=== PATIENT | female | born 1960 | race Caucasian/White ===

== ENCOUNTER 2024-03-15 10:41 | Outpatient (CLI) | payer OTHER, SELFPAY ==
--- NOTE | ~2024-03-15 | MR_ITS ---
EXAMINATION: MR breast BI wo/w con INDICATION: Left nipple discharge TECHNIQUE: Axial VIBRANT pre and dynamic post contrast, Sagittal VIBRANT post contrast, Axial T2 STIR ASSET COMPARISON: Mammography dated 10/13/2023 and 12/28/2019 CONTRAST: Multihance, 14 cc BREAST COMPOSITION: Scattered fibroglandular tissue FINDINGS: RIGHT BREAST: There is mild background parenchymal enhancement. No abnormal enhancement is present af ter contrast administration. No pathologically enlarged axillary or internal mammary lymph nodes are identified. LEFT BREAST: There is mild background parenchymal enhancement. There is a stable 1.2 x 0.8 cm mass in the central left breast, which correlates with mass present on prior mammograms from 2022 and 2019. No pathologically enlarged axillary or internal mammary lymph nodes are identified. IMPRESSION: No MR evidence for malignancy. Stable 1.2 x 0.8 cm central left breast mass dating back to at least 2019. This is consistent with be nign lesion, likely fibroadenoma BI-RADS Category 2: Benign finding(s). Reviewed, dictated and finalized at [facility]. IMPRESSION: No MR evidence for malignancy. Stable 1.2 x 0.8 cm central left breast mass dating back to at least 2019. This is consistent with benign lesion, likely fibroadenoma BI-RADS Category 2: Benign finding(s).
== END 2024-03-15 10:42 | disposition home or self-care (01) ==
PROVIDERS: PCP Internal Medicine Gastroenterology; Visit Provider Surgery
DX: N64.52 Nipple discharge (principal)
CPT/HCPCS: 77049; A9577; C8908

== ENCOUNTER 2024-08-08 09:43 | Outpatient (CLI) | payer OTHER, SELFPAY ==
--- NOTE | ~2024-08-08 | US_ITS ---
US breast BI limited 08/08/2024 10:39 Indication: Nipple discharge Procedure: Limited bilateral breast ultrasound Comparison: Ultrasound dated 12/28/2019 Findings: There is normal heterogeneous echotexture in the right breast without discrete mass. In the left breast there is a 7 x 3 x 5 mm oval hypoechoic mass with echogenic hilum at 12:00 near the areo la. No internal vascularity or posterior features. Impression: 1: Probable benign intramammary lymph node in the left breast at 12:00 near the areola. No sonographi c evidence for malignancy in the right breast. BI-RADS CATEGORY 3-PROBABLY BENIGN FINDING RECOMMENDATION: Six-month follow-up bilateral mammogram and Limited left breast ultrasound recommende d. Reviewed, dictated and finalized at [facility]. Impression: 1: Probable benign intramammary lymph node in the left breast at 12:00 near the areola. No sonographic evidence for malignancy in the right breast. BI-RADS CATEGORY 3-PROBABLY BENIGN FINDING RECOMMENDATION: Six-month follow-up bilateral mammogram and Limited left breast ultrasound recommended.
== END 2024-08-08 09:44 | disposition home or self-care (01) ==
PROVIDERS: PCP Internal Medicine Gastroenterology; Visit Provider Surgery
DX: N64.52 Nipple discharge (principal); R92.8 Other abnormal and inconclusive findings on diagnostic imaging of breast
CPT/HCPCS: 76642

== ENCOUNTER 2025-01-31 12:39 | Outpatient (CLI) | payer OTHER, SELFPAY ==
--- NOTE | ~2025-01-31 | MMUS_ITS ---
EXAMINATION: MM diagnostic naa BI w viry, US breast LT limited HISTORY: Previous benign right breast biopsy. Follow-up left breast mass. TECHNIQUE: Additional 3-D tomosynthesis images of the breasts were performed and synthetic 2-D images were generated. CAD analysis was submitted and interpreted. High resolution Limited left breast ultr asound was performed. COMPARISON: Comparison to multiple prior studies sequentially, with oldest reviewed study dated 11/24. BREAST PARENCHYMAL COMPOSITION: Not dense: There are scattered areas of fibroglandular density. FINDINGS: MAMMOGRAPHIC FINDINGS: There are no suspicious masses, calcifications or architectural distortion in either breast to sugges t malignancy. There is architectural distortion centrally in the right breast, consistent with previo us site of prior benign biopsy. No new masses, calcifications or architectural distortion in either b reast to suggest malignancy. ULTRASOUND: Limited left breast ultrasound: At 12:00 in the retroareolar location there is an oval hypoechoic mas s with central echogenicity measuring 6 x 5 x 2 mm without significant change, consistent with benign intramammary lymph node. No suspicious masses to suggest malignancy. IMPRESSION: 1. No evidence for malignancy in either breast. 2. Routine yearly screening mammogram and regular clinical breast examination are recommended. BI-RADS Category 2: Benign finding(s). Reviewed, dictated and finalized at location A. IMPRESSION: 1. No evidence for malignancy in either breast. 2. Routine yearly screening mammogram and regular clinical breast examination a re recommended. BI-RADS Category 2: Benign finding(s).
--- OUTSIDE RECORDS SUMMARY | 2025-01-31 13:49 | XMS_ITS | Encounter Summary ---
Author Organization [facility] Address [address] [place] [address] Care Team Providers Care Yoke Setter Name Role Phone Unavailable Primary Care Provider Unavailabl e Reason for Visit * Reason Onset Date Comments Hydroureteronephrosis 02/07/2024 Spoke w/ T carley @ Dr. Ji Urena exchange Encounter Details Date Type Department Care Team (Latest Contact Info) Description 02/07/2024 Telephone [facility] Admitting [address] [place] [address] Boubacar Zuniga, DO [address] [place] [address] Hydroureteronephrosis (Spoke w/ Iveth @ Dr. Ji Urena exchange) Social History Tobacco Use Types Packs/Day Years Used Date Smoking Tobacco: Every Day Cigarettes 1 5 Started: 01/24/2020 Smokeless Tobacco: Never Alcohol Use Standard Drinks/Week Comments Yes 3 (1 standard drink = 0.6 oz pur e alcohol) Social drinker Feeling Safe Answer Date Recorded Are you in a relationship wi th someone who hurts you emotionally and/or physically? No 02/07/2024 Food Insecurity Answer Date Recorded Social/Environmental Concerns No concerns Transportation Needs Answer Date Record ed Social/Environmental Concerns No concerns Housing Stability Answer Date Recorded Social/Environmental Concerns No concerns Utility Needs Answer Date Recorded Social/Environmental Concerns No concerns Comments No Sex and Gender Information Value Date Recorded Sex Assigned at Not on file Legal Sex Female 11:28 PM CDT Gender Identity Not on file Sexual Orientation Not on file documented as of this encounter Plan of Treatment Not on file documented as of this encounter Visit Diagnoses Not on filedocumented in this encounter
--- OUTSIDE RECORDS SUMMARY | 2025-01-31 13:49 | XMS_ITS | Encounter Summary ---
Author Organization [facility] Address [address] [place] [address] Care Team Providers Care Community Support Professional Name Role Phone Unavailable Primary Care Provider Unavailabl e Encounter Details Date Type Department Care Team (Late st Contact Info) Description 01/30/2025 External Device Data [facility] ABSTRACTION Provider, Abstract NO ADDRESS ON FILE Social History Tobacco Use Types Packs/Day Years Used Date Smoking Tobacco: Every Day Cigarettes 1 5 Started: 01/24/2020 Smokeless Tobacco: Never Alcohol Use Standard Drinks/Week Comments Yes 3 (1 standard drink = 0.6 oz pur e alcohol) Social drinker Feeling Safe Answer Date Recorded Are you in a relationship wi th someone who hurts you emotionally and/or physically? No 02/15/2024 Food Insecurity Answer Date Recorded Social/Environmental Concerns [...]
--- OUTSIDE RECORDS SUMMARY | 2025-01-31 13:49 | XMS_ITS | Encounter Summary ---
Author Organization [facility] Address [address] [place] [address] Care Team Providers Care Replenishment Buyer Name Role Phone Unavailable Primary Care Provider [...]
--- OUTSIDE RECORDS SUMMARY | 2025-01-31 13:49 | XMS_ITS | Encounter Summary ---
Author Organization [facility] Address [address] [place] [address] Care Team Providers Care Fish Machine Feeder Name Role Phone Jose Duron MD Primary Care Provider [phone] Reason for Visit * Reason Comments Refill Request Encounter Details Date Type Department Care Team (Late st Contact Info) Description 01/30/2025 Refill [facility] - Neurology [address] [place] [address], [place] [phone] Carri Rodriguez MD [address] [place] [phone] Refill Request Social History Tobacco Use Types Packs/Day Years Used Date Smoking Tobacco: Every Day Cigarettes 1.5 55.3 Started: 1970 Smokeless Tobacco: Never Alcohol Use Standard Drinks/Week Comments Yes 0 (1 standard drink = 0.6 oz pur e alcohol) occassional beer AUDIT-C Answer Date Recorded Frequency of Alcohol Consumption Not on file 02/01/2024 Q2: How many drinks containi ng alcohol do you have on a typical day when you are drinking? Patient does not drink Frequency of Binge Drinking Not on file 06/2024 Overall Financial Resource Strain (CARDIA) Answe r Date Recorded How hard is it for you to pa y for the very basics like food, housing, medical care, and heating? Very hard 07/29/2023 [facility] [place] of Occupat ional Health - Occupational Stress Questionnaire Answer Date Recorded Do you feel stress - tense, restless, nervous, or anxious, or unable to sleep at night because your mind is troubled all the time - these days? Not at all 07/29/2023 Hunger Vital Sign Answer Date Recorded Within the past 12 months, y ou worried that your food would run out before you got the money to buy more. Sometimes true Within the past 12 months, t he food you bought just didn't last and you didn't have money to get more. Never true 02/2023 PRAPARE - Transportation Answer Date Re corded In the past 12 months, has l ack of transportation kept you from medical appointments or from getting medications? No 02/2023 In the past 12 months, has l ack of transportation kept you from meetings, work, or from getting things needed for daily living? No 07/29/2023 Housing Stability Vital Sign Answer Elder e Recorded In the last 12 months, was t here a time when you were not able to pay the mortgage or rent on time? No 07/29/2023 In the last 12 months, how many places have you lived? 1 07/29/2023 In the last 12 months, was t here a time when you did not have a steady place to sleep or slept in a halfway (including now)? No 07/29/2023 Sex and Gender Information Value Date Recorded Sex Assigned at Not on file Gender Identity Not on file Sexual Orientation Not on file documented as of this encounter Functional Status Functional Status Response Date of Assess ment Is person deaf or have serious hearing difficult y? No 07/29/2023 Is person blind or have serious difficulty seein g? No 07/29/2023 Does person have serious dif ficulty walking/climbing stairs? Yes 07/29/2023 Does person have difficulty dressing/bathing? No 07/29/2023 Does person have difficulty doing errands alone? Yes 07/29/2023 Cognitive Status Response Date of Assessm ent Does person have difficulty concentrating/remembering/making decisions? No 07/29/2023 documented as of this encounter Plan of Treatment Upcoming Encounters Date Type Department Care Team (Late st Contact Info) Description 02/08/2025 2:30 PM CDT Office Visit [facility] - Urology [address] [place] [address] [address] [place] [address] Inga Valero M, DO [address] [place] [address] documented as of this encounter Visit Diagnoses Diagnosis MS (multiple sclerosis) (HCC) Multiple sclerosis documented in this encounter Care Teams Fish Machine Feeder Relationship Specialty Start Date End Date Jose Duron MD [address] [place] [phone] PCP - General 03/04/18 documented as of this encounter
--- OUTSIDE RECORDS SUMMARY | 2025-01-31 13:49 | XMS_ITS | Encounter Summary ---
Author Organization [facility] Address [address] [place] [address] Care Team Providers Care Fuel Yard Operator Name Role Phone Unavailable Primary Care Provider [...]
--- OUTSIDE RECORDS SUMMARY | 2025-01-31 13:49 | XMS_ITS | Clinical Summary ---
Author Organization [facility] Address [address] [place] [address] Care Team Providers Care Prospect Manager Name Role Phone Jose Duron MD Primary Care Provider [phone] Source Comments [facility],non-owned Affiliates and Associated Physician Practices is amultiple site organization consisting of ambulatory clinics and hospital sitesin [place], [place], [place] and [place]. This disclosure is being madepursuant to the Care Everywhere program and may not contain all information available regarding this patient. Last updated 18.[facility] Allergies Active Allergy Reactions Criticality Noted Date Comments Citalopram Diarrhea 05/20/2018 Nicotine Rash Medium 04/26/2024 Bupropion Seizures High 05/20/2018 Medications * Be aware that medications may not be up to date on this document. Alwaysverify current medications with the patient. Medication Sig Dispensed Refills Start Date End Date Status ibuprofen (Motrin) 800 MG tablet 3 Active losartan (Cozaar) 25 MG tablet Take 1 (one) tablet by mouth once daily for blood pressure 3 Active pantoprazole (Protonix) 40 MG packet Take 1 (one) packet by mouth once daily Active tamsulosin (Flomax) 0.4 MG capsule Take 1 (one) capsule by mouth once daily At the same time every day after a meal. 90 capsule 4 4 Active solifenacin (Vesicare) 10 MG tablet TAKE ONE TABLET BY MOUTH DAILY 90 tablet 3 4 Active doxazosin (Cardura) 2 MG tablet TAKE ONE TABLET BY MOUTH DAILY 90 tablet 3 4 Active tiZANidine (Zanaflex) 4 MG tabletIndicatio ns:MS (multiple sclerosis) ([facility]),Spasticit y TAKE ONE TABLET BY MOUTH EVERY 8 HOURS NEEDED FOR MUSCLE SPASM 90 tablet 5 5 Active Rebif 22 MCG/0.5ML prefilled syringeIndicati ons:MS (multiple sclerosis) ([facility]) INJECT 1 SYRINGE SUBCUTANEOUSLY ON WEDNESDAY, WEDNESDAY AND WEDNESDAY 12 mL 5 Active Rebif 22 MCG/0.5ML prefilled syringeIndicati ons:MS (multiple sclerosis) ([facility]) INJECT 1 SYRINGE SUBCUTANEOUSLY ON Wednesday AND WEDNESDAY 12 mL 5 01/06/20 25 Discontinued Active Problems Problem Noted Date Diagnosed Date Fall, initial encounter 07/29/2023 Closed fracture of neck of right femur, sequela 07/29/2023 Pain of right hip 07/29/2023 HTN (hypertension) 07/29/2023 Multiple sclerosis 02/25/2023 Renal abscess, left 01/15/2023 Urinary tract infection with hematuria, site uns pecified 01/10/2023 Cervicalgia 08/31/2018 Chronic midline low back pain without sciatica 1 10/31/2017 History of retinal detachment 07/27/2018 Tobacco abuse 01/29/2016 Encounters Date Type Department Care Team Description 01/30/2025 Refill [facility] - Neurology [address] [place] [phone] Carri Rodriguez MD Refill Request 01/04/2025 Refill [facility] - Neurology [address] [place] [phone] Carri Rodriguez MD Refill Request 12/01/2024 Refill [facility] - Neurology [address] [place] [phone] Carri Rodriguez MD Refill Request 11/07/2024 Refill [facility] - Neurology [address] [place] [phone] Carri Rodriguez MD Refill Request from Last 3 Months Immunizations Name Administration Dates Next Due INFLUENZA VACCINE, QUADR. (F LUZONE; FLULAVAL; FLUARIX; AFLURIA QUADRIVALENT; 6MO+), 0.5 ML (IIV4) 07/30/2023 Family History Medical History Relation Name Comments CAD (Coronary Artery Disease) Father Cancer - Other Mother bone Relation Name Status Comments Father Mother Social History Tobacco Use Types Packs/Day Years Used Date Smoking Tobacco: Every Day Cigarettes 1.5 55.3 Started: 1969 Smokeless Tobacco: Never Tobacco Cessation:Ready to Q uit: Not Asked; Counseling Given: Not Answered Alcohol Use Standard Drinks/Week Comments Yes 0 [...] medical care, and heating? Very hard 07/29/2023 [facility] [place] of Occupat ional Health - Occupational Stress [...] place to sleep or slept in a fci (including now)? No 07/29/2023 Sex and Gender Information Value Date Recorded Sex Assigned at Not on file Gender Identity Not on file Sexual Orientation Not on file Last Filed Vital Signs Vital Sign Reading Time Taken Comments Blood Pressure 152/85 10/04/2024 2:15 PM SEISMOGRAPH COMPUTER Pulse 75 10/04/2024 2:15 PM SEISMOGRAPH COMPUTER Temperature 36.5 C (97.7 F) 10/04/2024 2:15 PM SEISMOGRAPH COMPUTER Respiratory Rate 18 10/04/2024 2:15 PM SEISMOGRAPH COMPUTER Oxygen Saturation 98% 10/04/2024 2:15 PM SEISMOGRAPH COMPUTER Inhaled Oxygen Concentration - - Weight 76.2 kg (168 lb) 10/04/2024 2:15 PM SEISMOGRAPH COMPUTER Height 182.9 cm (6') 10/04/2024 2:15 PM SEISMOGRAPH COMPUTER Body Mass Index 22.78 10/04/2024 2:15 PM SEISMOGRAPH COMPUTER Plan of Treatment Upcoming Encounters Date Type Department Care Team (Late st Contact Info) Description 02/08/2025 2:30 PM CDT Office Visit [facility] - Urology [address] [place] [address] [address] [place] [address] Inga Valero M, DO [address] [place] [phone] Health Maintenance Due Date Last Done Comments COLOGUARD (AGES 45-75) - COL ON CA SCREENING 1962 COLON MONITORING 1962 COLONOSCOPY - COLON CA SCREENING 1962 CT COLONOGRAPHY - COLON CA SCREENING 1962 Colorectal Cancer Screening 1962 FIT - COLON CA SCREENING 1962 FLEX SIG - COLON CA SCREENING 1962 LIPID TESTING 1962 MAMMOGRAM 1962 PAP SMEAR 1962 HIV SCREENING 1977 HEPATITIS C SCREENING 04/17/1980 DTAP/TDAP/TD VACCINES (1 - Tdap) 1981 PNEUMOCOCCAL VACCINE 50+ (1 of 2 - PCV) 1981 LUNG CANCER SCREENING 2012 ZOSTER VACCINE (1 of 2) 2012 Respiratory Syncytial Virus (RSV) Vaccine Pt: or over 60 yrs (1 - Risk 60-74 years 1-dose series) 2022 COVID-19 VACCINE (1 - 2023-2 5 season) 2024 DEPRESSION SCREENING 10/25/2024 INFLUENZA VACCINE Completed 10/03/2024, 07/30/2023, 12/13/2018 HEPATITIS B VACCINE Aged Out No longe r eligible based on patient's age to complete this topic HIB VACCINE Aged Out No longer eligi ble based on patient's age to complete this topic HPV VACCINE Aged Out No longer eligi ble based on patient's age to complete this topic MENINGOCOCCAL (Group B) VACCINE SHARED DECISION-MAKING Aged Out No longer eligible based on patient's age to complete this topic MENINGOCOCCAL GROUPS A/C/Y/W VACCINE Aged Out No longer eligible b ased on patient's age to complete this topic Medical Devices Implanted Type Area Sales And Events Coordinator Device Identifier Shelf Expiration Date Model / Serial / Lot Hip Stem - Standard Offset Implanted:Qty: 1 on 07/29/2023 by Matt Leslie MD at [facility] 02/01/2028 [id number] / / [id number] Neck Adjustment Sleeve Implanted:Qty: 1 on 07/29/2023 by Matt Leslie MD at [facility] 01/15/2028 [id number] / [id number] Endoprosthesis Head Component Implanted:Qty: 1 on 07/29/2023 by Matt Leslie MD at [facility] 12/18/2027 [id number] Advance Directives * Full Code (Latest Code Status on File) Date Activated Date Inactivated Comments 07/29/2023 2:56 AM 08/03/2023 7:08 PM * Full Code Date Activated Date Inactivated Comments 01/10/2023 8:09 PM 01/15/2023 8:01 PM Care Teams Prospect Manager Relationship Specialty Start Date End Date Jose Duron MD [address] [place] [phone] PCP - General 03/04/18
--- OUTSIDE RECORDS SUMMARY | 2025-01-31 13:49 | XMS_ITS | Clinical Summary ---
Author Organization [facility] Address [address] [facility] [place] [address] Phone Care Team Providers Care Agricultural Extension Specialist Name Role Phone Jose Duron MD Primary Care Provider Allergies Active Allergy Reactions Criticality Noted Date Comments Citalopram Hydrobromide Diarrhea 07/12/2018 Bupropion Hcl Other (see Comments) 07/12/2018 Causes seizures Medications doxazosin (CARDURA) 2 MG Tablet Take 2 mg by mouth daily. Active cetirizine (ZYRTEC) 10 MG Tablet 8 Active nitrofurantoin (MACRODANTIN) 100 MG Capsule 8 Active ALBUTEROL IN take by inhalation. Active ergocalciferol (VITAMIN D) 30187 UNIT Capsule TAKE ONE CAPSULE BY MOUTH EVERY OTHER WEEK 4 Cap 9 Active Additional Information Patient not taking.Reported on 04/20/2019 Loratadine 10 MG Capsule Take 10 mg by mouth daily. Active tolterodine (DETROL LA) 4 MG CAPSULE SR 24 HR Take 4 mg by mouth daily. Active Cholecalciferol (VITAMIN D-3) 400 UNIT Tablet Take by mouth. Active methylPREDNISol one (MEDROL DOSPACK) 4 MG Tablet Therapy Pack Use as per instructions on package. 1 Dose Pack 9 Active traMADol (ULTRAM) 50 MG Tablet Take 1 Tab by mouth every 8 hours as needed for Moderate or more severe pain. 42 Tab 0 Active meloxicam (MOBIC) 15 MG Tablet TAKE 1 TABLET BY MOUTH ONCE EVERY DAY 30 Tab 0 Active baclofen (LIORESAL) 10 MG Tablet TAKE 1 TABLET BY MOUTH TWO TIMES DAILY (MUSCLE RELAXER) 60 Tab 2 0 Active Rebif 22 MCG/0.5ML Solution Prefilled SyringeIndicati ons:Multiple sclerosis (HCC) 22 mcg by Subcutaneous route three times a week. 12 Syringe 5 0 Active Active Problems Problem Noted Date Diagnosed Date Chronic midline low back pain without sciatica 1 10/31/2017 Cervicalgia 08/31/2018 Social History Tobacco Use Types Packs/Day Years Used Date Smoking Tobacco: Every Day Cigarettes 11 23 Smokeless Tobacco: Never Tobacco Cessation:Ready to Q uit: Yes Alcohol Use Standard Drinks/Week Comments Yes 0 (1 standard drink = 0.6 oz pur e alcohol) occasional Comments No Sex and Gender Information Value Date Recorded Sex Assigned at Not on file Legal Sex Female 2:40 PM CDT Gender Identity Not on file Sexual Orientation Not on file Last Filed Vital Signs Vital Sign Reading Time Taken Comments Blood Pressure 147/89 06/13/2019 11:41 AM CDT Pulse 86 06/13/2019 11:41 AM CDT Temperature 36.2 C (97.2 F) 06/13/2019 11:41 AM CDT Respiratory Rate 16 05/17/2019 11:19 AM CDT Oxygen Saturation 99% 06/13/2019 11:41 AM CDT Inhaled Oxygen Concentration - - Weight 85 kg (187 lb 6.4 oz) 04/20/2019 1:07 PM CDT Height 182.9 cm (6') 04/20/2019 1:07 PM CDT Body Mass Index 25.42 04/20/2019 1:07 PM CDT Plan of Treatment Health Maintenance Due Date Last Done Comments Hepatitis C Virus (HCV) Screening 1962 TdaP Immunization 1962 SARS-COV-2 Immunization (#1) 1967 Zoster Immunization (1 of 2) 1981 Colonoscopy 2007 Colorectal Cancer Screening 2007 Cologuard 2012 Immunochemical Fecal Occult Blood 2012 Pneumococcal Immunization (5 0+ years) (1 of 1 - PCV) 2012 Respiratory Syncytial Virus (RSV) Immunization (Adult) (1 - Risk 60-74 years 1-dose series) 2022 Influenza Immunization (#1) 2024 12/13/2018 Hepatitis B Immunization Aged Out No longer eligible based on patient's age to complete this topic Meningococcal Immunization (ACWY) Aged Out No longer eligible based on patient's age to complete this topic Rotavirus Immunization Aged Out No lo nger eligible based on patient's age to complete this topic Insurance [address] [place] [address] MEDICAID [employer] Care Teams Agricultural Extension Specialist Relationship Specialty Start Date End Date Jose Duron MD [address] [place] [address] PCP - General Internal Medicine 03/09/18
--- OUTSIDE RECORDS SUMMARY | 2025-01-31 13:49 | XMS_ITS | Clinical Summary ---
Author Organization [facility] Address [address] [place] [address] Phone Care Team Providers Care Potter Or Ceramic Artist Name Role Phone Unavailable Primary Care Provider Unavailabl e Allergies Active Allergy Reactions Criticality Noted Date Comments Bupropion Seizure High 02/07/2024 Citalopram Diarrhea Low 02/07/2024 Medications acetaminophen (TYLENOL ARTHRITIS) 650 mg Extended Release tablet Take 650 mg by mouth every 6 hours as needed for Pain. Active solifenacin (VESICARE) 10 mg Tablet Take 10 mg by mouth daily. Active losartan (COZAAR) 50 mg tablet Take 50 mg by mouth daily. Active loratadine (CLARITIN RediTabs) 10 mg Tablet, Rapid Dissolve Place 10 mg inside cheek daily. Active tiZANidine (ZANAFLEX) 4 mg Capsule Take 4 mg by mouth every 6 hours as needed for Spasm. Active pantoprazole (Protonix) 40 mg Tablet, Delayed Release (E.C.) Take 1 Tablet (40 mg) by mouth daily. 30 Tablet 02/13/2024 2:31 PM CDT 02/13/2024 Active polyethylene glycol 3350 (MIRALAX) 17 gram/dose Powder Mix 1 Scoop (17 Grams) in liquid and drink by mouth 1 time daily as needed for Constipation. 510 Gram 02/13/2024 2:31 PM CDT 02/13/2024 Active nicotine (NICODERM CQ) 14 mg/24 hr patch Apply 1 Patch to skin as directed daily. 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 Urinary retention 02/07/2024 Bilateral hydronephrosis 02/07/2024 Acute cystitis with hematuria 02/07/2024 OLY (acute kidney injury) 02/07/2024 Bladder diverticulum 02/07/2024 Constipation 02/07/2024 Encounters Date Type Department Care Team Description 01/30/2025 External Device Data [facility] ABSTRACTION Provider, Abstract 01/30/2025 External Device Data [facility] ABSTRACTION Provider, Abstract 01/30/2025 External Device Data [facility] ABSTRACTION Provider, Abstract 12/26/2024 External Device Data [facility] ABSTRACTION Provider, Abstract 12/12/2024 External Device Data [facility] ABSTRACTION Provider, Abstract 11/28/2024 External Device Data [facility] ABSTRACTION Provider, Abstract 11/22/2024 External Device Data [facility] ABSTRACTION Provider, Abstract 11/16/2024 External Device Data [facility] ABSTRACTION Provider, Abstract 11/07/2024 External Device Data [facility] ABSTRACTION Provider, Abstract from Last 3 Months Family History Medical History Relation Name Comments Heart Disease Father Cancer Mother Relation Name Status Comments Father Mother Social History Tobacco Use Types Packs/Day Years Used Date Smoking Tobacco: Every Day Cigarettes 1 5 Started: 01/24/2020 Smokeless Tobacco: Never Tobacco Cessation:Ready to Q uit: No; Counseling Given: No Alcohol Use Standard Drinks/Week Comments Yes 3 [...] Sign Reading Time Taken Comments Blood Pressure 95/57 02/15/2024 3:21 AM CDT Pulse 98 02/15/2024 3:21 AM CDT Temperature 36.7 C (98 F) 02/13/2024 4:42 PM CDT Respiratory Rate 20 02/15/2024 3:21 AM CDT Oxygen Saturation 97% 02/15/2024 3:21 AM CDT Inhaled Oxygen Concentration - - Weight 63.5 kg (140 lb) 02/07/2024 11:08 AM CDT Height 182.9 cm (6') 02/07/2024 11:08 AM CDT Body Mass Index 18.99 02/07/2024 11:08 AM CDT Plan of Treatment Health Maintenance Due Date Last Done Comments PNEUMOCOCCAL VACCINE 0-49 YEARS (1 of 2 - PCV) 968 DTAP/TDAP/TD VACCINES (1 - Tdap) 1981 HPV/Cotest (21-29) 1983 PAP SMEAR 1983 CERVICAL CANCER SCREENING 1992 HPV/Cotest (30-65) 1992 PAP SMEAR 1992 BREAST CANCER SCREENING 2002 COLORECTAL SCREENING 2007 Colorectal Cancer Screening 2007 FIT-DNA Q 3 years 2007 FIT/FOBT Q 1 year 2007 Flex Sig/CT Colonography Q 5 years 2007 ZOSTER VACCINE (1 of 2) 2012 INFLUENZA VACCINE (#1) 2024 07/30/2023 RSV VACCINE (60+ or ) (1 - 1-dose 75+ series) 2037 Insurance [address] [place] [address] [facility] MEDICAID RX [employer] Commercial Advance Directives For more information, please contact: [phone] * Full Code (Latest Code Status on File) Date Activated Date Inactivated Comments 02/07/2024 8:36 AM 02/13/2024 9:01 PM
--- OUTSIDE RECORDS SUMMARY | 2025-01-31 13:50 | XMS_ITS | Continuity of Care Document ---
Author Organization [facility] Address [facility] [place] [address] Phone Care Team Providers Care Online Tutor Name Role Phone Unavailable Unavailable Unavailable Advance Directives Directive Yes / No Effective Date File Name No Information Encounters Encounter Description Practice Location Reason(s) For Visit Diagnoses Date Provider Providers Copied on Encounter [facility], [address] [place] [address], [id number], [place] tel:[phone] [facility] No Information 0200 7 No Information Family History Family Member Type Diagnosis Age At Onset No Information Payers Payer name Insurance type Covered republican ID Authoriza tion(s) No Information Social History Type Description Quantity Date Captured Comments Sex Female Smoking Status No Information Chief Complaint And Reason For Visit No Information Reason For Referral Reason For Referral No Information History Of Present Illness Encounter Date Complaint History Of Prese nt Illness No Information Functional Status Date Functional Assessmen t No Information Instructions Date Instruction Additional Infor mation No Information Assessments Type Assessment Date No Information Patient Care Teams Name Effective Dates (start - stop) Status Members No Information
--- OUTSIDE RECORDS SUMMARY | 2025-01-31 13:50 | XMS_ITS | Data Portability ---
Author Organization [facility] Brink Address [address] [address] Care Team Providers [facility] Display Builder Name Role Phone JOSE RASCON Primary Care Provider Assessment No assessment recorded. Plan of Treatment Reminders Order Date Submit Date Provider Last Modified By Organization Details Last Modified Time Details Appointments ANY 15 2024 01:15P M Jose Rascon MD Not available Not available Not available Lab vitamin D, 25-hydr oxy, total, serum 2023 [facility], [address], [address], [place], [address], 08/12/2024 08:25:55 vitamin B12 + folate, serum or blood 2023 [facility], [address], [address], [place], [address], 08/12/2024 08:25:54 thiamin e, QN, blood 2023 024 [facility], [address], [address], [place], [address], 08/16/2024 13:11:12 CMP, serum or plasma 2023 [facility], [address], [address], [place], [address], 08/12/2024 06:20:30 lipid panel, serum 2023 024 [facility], [address], [address], [place], [address], 08/12/2024 06:20:28 CBC 2023 024 [facility], [facility] [address], [address], [place], [address], 08/12/2024 06:20:31 TSH, ultra-s ensitiv e, serum 2023 024 [facility], [facility] [address], [address], [place], [address], 08/12/2024 08:25:52 HbA1c (hemogl obin A1c), blood 2022 023 [facility], [address], [address], [place], [address], 10/13/2023 06:20:37 CBC 2022 023 [facility], [facility] [address], [address], [place], [address], 10/13/2023 06:20:35 lipid panel, serum 2022 023 [facility], [address], [address], [place], [address], 10/13/2023 06:20:34 CMP, serum or plasma 2022 023 [facility], [address] [facility] [address], [address], [place], [address], 10/13/2023 06:20:34 culture , urine 2022 023 [facility] [address], [address], [place], [address], 06/17/2023 07:14:24 Referral None recorde d. Procedures None recorde d. Surgeries None recorde d. Imaging None recorde d. Medication Orders losarta n 50 mg tablet 2022 023 [place] [facility], [address] [place] [address], [id number], 03/22/2024 15:42:45 acetami nophen 300 mg-code ine 30 mg tablet 2022 023 [facility], [facility], [address] [facility] [address], [place], [id number], 08/01/2024 16:28:58 acetami nophen 300 mg-code ine 30 mg tablet 2022 023 [facility], [address] [place] [address], [id number], 08/01/2024 16:28:58 Cipro 500 mg tablet 2022 023 [facility], [facility], [address] [place] [address], [id number], 08/01/2024 16:31:19 Patient TargetsNo targets recorded. Patient Instructions Encounter Date Encounter Id Patient Instructions Last Modified By Organization Details Last Modified Time 08/12/2023 [id number] learning about h igh blood sugar Not available 08/12/2023 15:32:58 Quitting Tobacco : Care Instructions [email or web address] Not available 08/12/2023 15:32:58 hip replacement: before your surgery [email or web address] Not available 08/12/2023 15:32:58 urinary retentio n: care instructions Not available 08/12/2023 15:32:58 back care and preventing injuries: care instructions [email or web address] Not available 08/12/2023 15:32:58 learning about h igh blood pressure [email or web address] Not available 08/12/2023 15:32:58 multiple scleros is (MS): care instructions [email or web address] Not available 08/12/2023 15:32:58 10/12/2023 [id number] learning about h igh blood sugar [email or web address] Not available 10/12/2023 16:08:02 hip replacement: before your surgery [email or web address] Not available 10/12/2023 16:08:01 learning about h igh blood pressure [email or web address] Not available 10/12/2023 16:08:02 multiple scleros is (MS): care instructions [email or web address] Not available 10/12/2023 16:08:01 08/01/2024 [id number] Quitting Tobacco : Care Instructions Not available 08/01/2024 16:49:39 gastroesophageal reflux disease (GERD): care instructions [email or web address] Not available 08/01/2024 16:49:39 multiple scleros is (MS): care instructions [email or web address] Not available 08/01/2024 16:49:39 hair loss from alopecia areata: care instructions [email or web address] Not available 08/01/2024 16:49:39 abnormal weight loss: care instructions [email or web address] Not available 08/01/2024 16:49:39 learning about h igh blood sugar [email or web address] Not available 08/01/2024 16:49:39 learning about h igh blood pressure [email or web address] Not available 08/01/2024 16:49:39 10/03/2024 [id number] Quitting Tobacco : Care Instructions [email or web address] Not available 10/03/2024 16:27:19 urinary retentio n: care instructions Not available 10/03/2024 16:27:19 multiple scleros is (MS): care instructions Not available 10/03/2024 16:27:20 Reason for Referral None Reported. Results Created Date Observation Date Name Description Value Unit Range Abnormal Flag Note LastModifiedBy Organization Detail LastModifiedTime 06/15/20 23 06/17/2023 URINE CULTU RE, ROUTI NE urine culture, routine Final report Not Available [facility] ([facility]) [address], [place], [address], 06/17/2023 07:14:24 08/22/20 23 06/17/2023 URINE CULTU RE, ROUTI NE result 1 Commen t Mixed uroge nital isac 25,00 0-50, 000 colon y formi ng units per mL Not Available [facility] ([facility]) [address] [facility], [place], [address], 06/17/2023 07:14:24 10/12/20 23 10/12/2023 LIPID PANEL cholesterol, total 190 mg/dL 100-[address] [facility] [address] [place], [address], 10/13/2023 06:20:34 10/12/20 23 10/12/2023 LIPID PANEL triglyceride s 92 mg/dL 0-149 Not Available [facility] Department [address] [place], [address], 10/13/2023 06:20:34 10/12/20 23 10/12/2023 LIPID PANEL HDL cholesterol 60 mg/dL 40-999 Not Available [facility] [address] [place], [address], 10/13/2023 06:20:34 10/12/20 23 10/12/2023 LIPID PANEL VLDL cholesterol thomas 18 mg/dL 5-40 Not Available [facility] Department [address] [place], [address], 10/13/2023 06:20:34 10/12/20 23 10/12/2023 LIPID PANEL LDL chol calc ([facility]) 125 mg/dL 0-99 above high normal Not Available [facility] [address] [place], [address], 10/13/2023 06:20:34 10/12/20 23 10/12/2023 COMP. METAB OLIC PANEL (14) glucose 77 mg/dL 70-[address] [facility] [address] [place], [address], 10/13/2023 06:20:34 10/12/20 23 10/12/2023 COMP. METAB OLIC PANEL (14) BUN 12 mg/dL 8-[address] [facility] [address] [place], [address], 10/13/2023 06:20:34 10/12/20 23 10/12/2023 COMP. METAB OLIC PANEL (14) creatinine 0.47 mg/dL 0.76-1 .27 below low normal Not Available [facility] [address] [place], [address], 10/13/2023 06:20:34 10/12/20 23 10/12/2023 COMP. METAB OLIC PANEL (14) eGFR 108 >=60 Units for eGFR value s are mL/mi n/1.7 3 The eGFR Calcu latio n has not been valid ated for patie nts under the age of 18. If test resul ts are displ ayed for a patie nt under the age of 18, disre janene that value . Not Available [facility] [address] [place] [address], [address], 10/13/2023 06:20:34 10/12/20 23 10/12/2023 COMP. METAB OLIC PANEL (14) BUN/creatini ne ratio 25 10-28 Not Available [facility] Department [address] [place] [address], [address], 10/13/2023 06:20:34 10/12/20 23 10/12/2023 COMP. METAB OLIC PANEL (14) sodium 142 mmol/ L 134-[address] [facility] [address] [place], [address], 10/13/2023 06:20:34 10/12/20 23 10/12/2023 COMP. METAB OLIC PANEL (14) potassium 3.8 mmol/ L 3.5-5. [address] [facility] [address] [place] [address], [address], 10/13/2023 06:20:34 10/12/20 23 10/12/2023 COMP. METAB OLIC PANEL (14) chloride 103 mmol/ L 96-[address] [facility] [address] [place], [address], 10/13/2023 06:20:34 10/12/20 23 10/12/2023 COMP. METAB OLIC PANEL (14) carbon dioxide, total 25 mmol/ L 20-[address] [facility] [address] [place] [address], [address], 10/13/2023 06:20:34 10/12/20 23 10/12/2023 COMP. METAB OLIC PANEL (14) calcium 9.8 mg/dL 8.7-[address] [facility] [address] [place] [address], [address], 10/13/2023 06:20:34 10/12/20 23 10/12/2023 COMP. METAB OLIC PANEL (14) protein, total 7.3 g/dL 6.0-8. [address] [facility] [address] [place] [address], [address], 10/13/2023 06:20:34 10/12/20 23 10/12/2023 COMP. METAB OLIC PANEL (14) albumin 4.4 g/dL 3.8-4. [address] [facility] [address] [place] [address], [address], 10/13/2023 06:20:34 10/12/20 23 10/12/2023 COMP. METAB OLIC PANEL (14) globulin, total 2.9 g/dL 1.5-4. [address] [facility] [address] [place], [address], 10/13/2023 06:20:34 10/12/20 23 10/12/2023 COMP. METAB OLIC PANEL (14) A/G ratio 1.5 1.2-2. [address] [facility] [address] [place], [address], 10/13/2023 06:20:34 10/12/20 23 10/12/2023 COMP. METAB OLIC PANEL (14) bilirubin, total 0.7 mg/dL 0.0-1. [address] [facility] [address] [place], [address], 10/13/2023 06:20:34 10/12/20 23 10/12/2023 COMP. METAB OLIC PANEL (14) alkaline phosphatase 106 IU/L 44-121 Not Available [facility] [address] [place] [address], [address], 10/13/2023 06:20:34 10/12/20 23 10/12/2023 COMP. METAB OLIC PANEL (14) AST (SGOT) 25 IU/L 0-40 Not Available [facility] Department [address] [place] [address], [address], 10/13/2023 06:20:34 10/12/20 23 10/12/2023 COMP. METAB OLIC PANEL (14) ALT (SGPT) 16 IU/L 0-32 Not Available [facility] [address] [place] [address], [address], 10/13/2023 06:20:34 10/12/20 23 10/12/2023 CBC, PLATE LET, NO DIFFE RENTI AL WBC 6.7 x10e3 /uL 3.4-[address] [facility] [address] [place] [address], [address], 10/13/2023 06:20:35 10/12/20 23 10/12/2023 CBC, PLATE LET, NO DIFFE RENTI AL RBC 4.30 x10e6 /uL 3.77-[address] [facility] [address] [place] [address], [address], 10/13/2023 06:20:35 10/12/20 23 10/12/2023 CBC, PLATE LET, NO DIFFE RENTI AL hemoglobin 13.4 g/dL 11.1-[address] [facility] [address] [place], [address], 10/13/2023 06:20:35 10/12/20 23 10/12/2023 CBC, PLATE LET, NO DIFFE RENTI AL hematocrit 40.9 % 34.0-[address] [facility] [address] [place], [address], 10/13/2023 06:20:35 10/12/20 23 10/12/2023 CBC, PLATE LET, NO DIFFE RENTI AL MCV 95 fL 79-[address] [facility] [address] [place], [address], 10/13/2023 06:20:35 10/12/20 23 10/12/2023 CBC, PLATE LET, NO DIFFE RENTI AL MCH 31.2 pg 26.6-[address] [facility] [address] [place], [address], 10/13/2023 06:20:35 10/12/20 23 10/12/2023 CBC, PLATE LET, NO DIFFE RENTI AL MCHC 32.8 g/dL 31.5-[address] [facility] [address] [place], [address], 10/13/2023 06:20:35 10/12/20 23 10/12/2023 CBC, PLATE LET, NO DIFFE RENTI AL RDW 12.9 % 11.5-[address] [facility] [address] [place], [address], 10/13/2023 06:20:35 10/12/20 23 10/12/2023 CBC, PLATE LET, NO DIFFE RENTI AL platelets 263 x10e3 /uL 150-45 0 Mean Plate let Volum e 9.2 fL 8.9-[address] [facility] [address] [place] [address], [address], 10/13/2023 06:20:35 10/12/20 23 10/12/2023 CBC, PLATE LET, NO DIFFE RENTI AL NRBC 0 % 0-[address] [facility] [address] [place] [address], [address], 10/13/2023 06:20:35 10/12/20 23 10/13/2023 HEMOG LOBIN A1C hemoglobin A1C 5.8 % 4.8-5. 6 above high normal Predi abete s: 5.7 - 6.4 Diabe neville: >6.4 Glyce elisabeth contr ol for adult s with diabe neville: <7.0 Not Available [facility] ([facility]) [address] [facility], [place], [address], 10/13/2023 06:20:37 08/11/20 24 08/11/2024 LIPID PANEL cholesterol, total 183 mg/dL 100-[address] [facility] [address] [place] [address], [address], 08/12/2024 06:20:28 08/11/20 24 08/11/2024 LIPID PANEL triglyceride s 73 mg/dL 0-149 Not Available [facility] Department [address] [place] [address], [address], 08/12/2024 06:20:28 08/11/20 24 08/11/2024 LIPID PANEL HDL cholesterol 80 mg/dL 40-999 Not Available [facility] [address] [place], [address], 08/12/2024 06:20:28 08/11/20 24 08/11/2024 LIPID PANEL VLDL cholesterol thomas 15 mg/dL 5-40 Not Available [facility] [address] [place], [address], 08/12/2024 06:20:28 08/11/2008/11/2024 LIPID PANEL LDL chol calc (nih) 99 mg/dL 0-99 Not Available [facility] Department [address] [place], [address], 08/12/2024 06:20:28 08/11/20 24 08/11/2024 COMP. METAB OLIC PANEL (14) glucose 90 mg/dL 70-[address] [facility] [address] [place], [address], 08/12/2024 06:20:30 08/11/20 24 08/11/2024 COMP. METAB OLIC PANEL (14) BUN 15 mg/dL 8-[address] [facility] [address] [place] [address], [address], 08/12/2024 06:20:30 08/11/20 24 08/11/2024 COMP. METAB OLIC PANEL (14) creatinine 0.51 mg/dL 0.76-1 .27 below low normal Not Available [facility] [address] [place] [address], [address], 08/12/2024 06:20:30 08/11/20 24 08/11/2024 COMP. METAB OLIC PANEL (14) eGFR 105 >=60 Units for eGFR value s are mL/mi n/1.7 3 The eGFR Calcu latio n has not been valid ated for patie nts under the age of 18. If test resul ts are displ ayed for a patie nt under the age of 18, disre janene that value . Not Available [facility] [address] [place] [address], [address], 08/12/2024 06:20:30 08/11/20 24 08/11/2024 COMP. METAB OLIC PANEL (14) BUN/creatini ne ratio 30 10-28 above high normal Not Available [facility] [address] [place], [address], 08/12/2024 06:20:30 08/11/20 24 08/11/2024 COMP. METAB OLIC PANEL (14) sodium 142 mmol/ L 134-[address] [facility] [address] [place], [address], 08/12/2024 06:20:30 08/11/20 24 08/11/2024 COMP. METAB OLIC PANEL (14) potassium 4.8 mmol/ L 3.5-5. [address] [facility] [address] [place], [address], 08/12/2024 06:20:30 08/11/20 24 08/11/2024 COMP. METAB OLIC PANEL (14) chloride 105 mmol/ L 96-[address] [facility] [address] [place], [address], 08/12/2024 06:20:30 08/11/20 24 08/11/2024 COMP. METAB OLIC PANEL (14) carbon dioxide, total 29 mmol/ L 20-[address] [facility] [address] [place], [address], 08/12/2024 06:20:30 08/11/20 24 08/11/2024 COMP. METAB OLIC PANEL (14) calcium 10.0 mg/dL 8.7-[address] [facility] [address] [place], [address], 08/12/2024 06:20:30 08/11/20 24 08/11/2024 COMP. METAB OLIC PANEL (14) protein, total 7.3 g/dL 6.0-8. [address] [facility] [address] [place], [address], 08/12/2024 06:20:30 08/11/20 24 08/11/2024 COMP. METAB OLIC PANEL (14) albumin 4.3 g/dL 3.8-4. [address] [facility] [address] [place], [address], 08/12/2024 06:20:30 08/11/20 24 08/11/2024 COMP. METAB OLIC PANEL (14) globulin, total 3.0 g/dL 1.5-4. [address] [facility] [address] [place], [address], 08/12/2024 06:20:30 08/11/20 24 08/11/2024 COMP. METAB OLIC PANEL (14) A/G ratio 1.0 1.2-2. 2 below low normal Not Available [facility] [address] [place] [address], [address], 08/12/2024 06:20:30 08/11/20 24 08/11/2024 COMP. METAB OLIC PANEL (14) bilirubin, total 0.6 mg/dL 0.0-1. [address] [facility] [address] [place], [address], 08/12/2024 06:20:30 08/11/20 24 08/11/2024 COMP. METAB OLIC PANEL (14) alkaline phosphatase 98 IU/L 44-121 Not Available [facility] [address] [place], [address], 08/12/2024 06:20:30 08/11/20 24 08/11/2024 COMP. METAB OLIC PANEL (14) AST (SGOT) 23 IU/L 0-40 Not Available [facility] [address] [place], [address], 08/12/2024 06:20:30 08/11/20 24 08/11/2024 COMP. METAB OLIC PANEL (14) ALT (SGPT) 13 IU/L 0-32 Not Available [facility] [address] [place] [address], [address], 08/12/2024 06:20:30 08/11/2008/11/2024 CBC, PLATE LET, NO DIFFE RENTI AL WBC 6.4 x10e3 /uL 3.4-[address] [facility] [address] [place], [address], 08/12/2024 06:20:31 08/11/2008/11/2024 CBC, PLATE LET, NO DIFFE RENTI AL RBC 3.94 x10e6 /uL 3.77-[address] [facility] [address] [place], [address], 08/12/2024 06:20:31 08/11/2008/11/2024 CBC, PLATE LET, NO DIFFE RENTI AL hemoglobin 13.0 g/dL 11.1-[address] [facility] [address] [place], [address], 08/12/2024 06:20:31 08/11/2008/11/2024 CBC, PLATE LET, NO DIFFE RENTI AL hematocrit 39.8 % 34.0-[address] [facility] [address] [place], [address], 08/12/2024 06:20:31 08/11/2008/11/2024 CBC, PLATE LET, NO DIFFE RENTI AL MCV 101 fL 79-97 above high normal Not Available [facility] [address] [place], [address], 08/12/2024 06:20:31 08/11/2008/11/2024 CBC, PLATE LET, NO DIFFE RENTI AL MCH 33.0 pg 26.6-[address] [facility] [address] [place], [address], 08/12/2024 06:20:31 08/11/20 08/11/2024 CBC, PLATE LET, NO DIFFE RENTI AL MCHC 32.7 g/dL 31.5-[address] [facility] [address] [place], [address], 08/12/2024 06:20:31 08/11/20 24 08/11/2024 CBC, PLATE LET, NO DIFFE RENTI AL RDW 14.6 % 11.5-1 4.5 above high normal Not Available [facility] [address] [place], [address], 08/12/2024 06:20:31 08/11/2008/11/2024 CBC, PLATE LET, NO DIFFE RENTI AL platelets 237 x10e3 /uL 150-45 0 Mean Plate let Volum e 9.3 fL 8.9-[address] [facility] [address] [place], [address], 08/12/2024 06:20:31 08/11/20 24 08/11/2024 CBC, PLATE LET, NO DIFFE RENTI AL NRBC 0 % 0-[address] [facility] [address] [place], [address], 08/12/2024 06:20:31 08/11/2008/12/2024 TSH RFX ON ABNOR MAL TO FREE T4 TSH 2.480 uIU/m L 0.450- 4.500 Not Available [facility] ([facility]) [address] [facility], [place], [address], 08/12/2024 08:25:52 08/11/2008/12/2024 VITAM IN B12 AND FOLAT E vitamin B12 309 pg/mL 232-12 45 Not Available [facility] ([facility]) [address] [facility], [place], [address], 08/12/2024 08:25:54 08/11/2008/12/2024 VITAM IN B12 AND FOLAT E folate (folic acid), serum 10.1 NG/mL >3.0 A serum folat e aaliyah ntrat ion of less than 3.1 ng/mL is consi dered to repre sent clini thomas defic iency . Not Available [facility] ([facility]) [address] [facility], [place], [address], 08/12/2024 08:25:54 08/11/20 24 08/12/2024 VITAM IN D, 25-HY DROXY vitamin D, 25-hydroxy 52.2 NG/mL 30.0-1 00.0 Vitam in D defic iency has been defin ed by the Insti tute of Medic ine and an Endoc rine Socie ty pract ice guide line as a level of serum 25-OH vitam in D less than 20 ng/mL (1,2) . The Endoc rine Socie ty went on to furth er defin e vitam in D insuf ficie ncy as a level betwe en 21 and 29 ng/mL (2). 1. IOM (Inst itute of Medic ine). 2010. Dieta ry refer ence intak es for calci um and D. Mindi mae [place]: [facility] Press . 2. Earl bolanos [place], Debbie woodward [place], Elli off-F errar i BARRIENTOS, et al. Evalu ation , treat ment, and preve ntion of vitam in D defic iency : an Endoc rine Socie ty clini thomas pract ice guide line. JCEM. 2010; 96(7) :1911 -30. Not Available [facility] ([facility]) [address] [facility], [place], [address], 08/12/2024 08:25:55 08/11/20 24 08/16/2024 VITAM IN B1 (THIA MINE) , BLOOD vit. B1, whole blood 104.1 nmol/ L 66.5-2 00.0 Not Available [facility] ([facility]) [address] [facility], [place], [address], 08/16/2024 13:11:11 10/13/20 23 10/13/2023 MAMMO , diagn ostic , digit al, bilat eral No observ ation record ed. [facility] [address] [place], [address], 12/22/2023 13:10:11 10/13/20 23 10/13/2023 US, breas t, bilat eral No observ ation record ed. [facility] [address] [place], [address], 12/22/2023 13:10:12 02/07/20 24 02/06/2024 CT, abdom en, w/o contr ast No observ ation record ed. [address] [facility] [address] [place], [address], 02/27/2024 19:54:57 03/17/20 24 03/15/2024 MRI, breas t, bilat eral, w/wo contr ast No observ ation record ed. [address], [place], [address], 04/11/2024 00:53:20 08/08/20 24 08/08/2024 US, breas t, bilat eral No observ ation record ed. [address] [address], [place], [address], 08/23/2024 01:32:10 Result Notes None recorded. 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 Cesia [place], [place] - [facility] 6 13:18:05 [facility] emia 05371779 Active 2017 Jose Rascon MD Attn: Ofeliajohana mathew,[address] [facility], [place], [address], [place] [facility] 8 16:10:31 Osteoarth ritis 416795561 Active 2017 LS spine/ left thumb Jose Rascon MD Attn: Ziggy priyanka,[address] [facility], [place], [address], [place] [facility] 8 16:43:53 Tinea pedis 1613018 Active 2017 Jose Rascon MD Attn: Ziggy mathew,[address] [facility], [place], [address], [place] [facility] 8 16:45:18 Discharge from breast 569007918 Active 2018 left Jose Rascon MD Attn: Ziggy mathew,[address] [facility], [place], [address], [place] [facility] 9 14:01:37 Constipat ion 89222417 Active 2018 Jose Rascon MD Attn: Ziggy mathew,[address] [facility], [place], [address], [place] [facility] 9 15:27:06 Chronic pain syndrome 619015446 Active 2019 Jose Rascon MD Attn: Ziggy mathew,[address] [facility], [place], [address], [place] [facility] 0 18:45:21 Urinary tract infectiou s disease 13357204 Active 2019 Jose Rascon MD Attn: Ziggy mathew,[address] [facility], [place], [address], [place] [facility] 0 18:00:37 Elevated blood-pre ssure reading without diagnosis of hypertens ion [id number] Completed 202110/12/2023 Jose Rascon MD Attn: Ofeliajohana mathew,[address] [facility], [place], [address], [place] [facility] 3 16:00:04 Screening for osteoporo sis Active 2022 Jose Rascon MD Attn: Ziggy priyanka,[address] [facility], [place], [address], [place] [facility] 3 16:17:12 Lesion of skin of face [id number] Active 2022 Jose Rascon MD Attn: Ofeliajohana mathew,[address] [facility], [place], [address], [place] [facility] 3 16:20:17 History of osteopeni a 037071482 Active 2022 Jose Rascon MD Attn: Ziggy priyanka,[address] [facility], [place], [address], [place] [facility] 3 13:06:00 Osteopeni a 662574270 Active 2022 Jose Rascon MD Attn: Ziggy priyanka,[address] [facility], [place], [address], [place] [facility] 3 13:07:00 Essential hypertens ion 83139845 Active 2022 Jose Rascon MD Attn: Ziggy priyanka,[address] [facility], [place], [address], [place] [facility] 3 13:09:24 At increased risk of deep vein thrombosi s 154568247 Active 2022 Jose Rascon MD Attn: Ziggy priyanka,[address] [facility], [place], [address], [place] [facility] 3 18:28:10 Fracture of neck of femur 2943311 Active 2022 Jose Rascon MD Attn: Ziggy mathew,[address] [place], [address], [place] [facility] 3 15:24:58 Ulcer of left ankle 383770042497 64896 Active 2022 Jose Rascon MD Attn: Accountin g,[address] [place], [address], [place] [facility] 3 16:01:16 Medicatio n monitorin g Active 2023 Jose Rascon MD Attn: Accountin g,[address] [place], [address], [place] [facility] 4 17:13:53 Gastroeso phageal reflux disease 710264297 Active 2023 Jose Rascon MD Attn: Accountin g,[address] [place], [address], [place] [facility] 4 18:17:08 Abnormal weight loss 422441828 Active 2023 Jose Rascon MD Attn: Accountin g,[address] [place], [address], [place] [facility] 4 16:46:04 Loss of hair 927024176 Active 2023 Jose Rascon MD Attn: Accountin g,[address] [place], [address], [place] [facility] 4 16:48:44 Active immunizat ion Active 2023 Jose Rascon MD Attn: Accountin g,[address] [place], [address], [place] [facility] 4 16:27:58 Multiple sclerosis 51417663 Active Cesia Art [place] [facility] 6 13:18:05 Low back pain 092397368 Active Cesia Rub[place] [facility] 6 13:18:05 Candidias is of vagina 09954642 [place] Art [place] [facility] 6 13:18:05 Allergic rhinitis 60079523 Active Cesia [place], [place] [facility] 6 13:18:05 Bronchiti s 86677101 Completed 09/09/2016 Jose Rascon MD Attn: Ofeliajohana mathew,[address] [place], [address], [place] [facility] 6 15:24:40 Epidermoi d cyst of skin 345663190 Active Placido Ness MD [address] [place], [address], [place] [facility] 6 13:25:44 Mammograp hic mass of breast 133420600 Completed 04/29/2017 Jose Rascon MD Attn: Ziggy priyanka,[address] [place], [address], [place] [facility] 7 12:54:32 Tobacco user 459460750 Active 2015 Jose Rascon MD Attn: Ziggy priyanka,[address] [place], [address], [place] [facility] 6 15:25:06 Varicose veins of lower extremity 32542795 Active 2015 Jose Rascon MD Attn: Ziggy priyanka,[address] [place], [address], [place] [facility] 6 15:27:05 Liver enzymes outside reference range 569003672 Completed 201504/29/2017 Jose Rascon MD Attn: Ziggy mathew,[address] [place], [address], [place] [facility] 7 12:54:40 Mixed hyperlipi demia 239606749 Active 2015 Jose Rascon MD Attn: Ziggy mathew,[address] [place], [address], [place] [facility] 6 15:02:14 Retention of urine 058345783 Active Cesia Art null[place] [facility] 6 13:18:05 Steatosis of liver 291928023 Active 2016 Jose Rascon MD Attn: Ziggy mathew,[address] [facility], [place], [address], [facility] - [facility] 7 12:53:27 Usual ductal hyperplas ia of breast 714533997 Active 2016 Jose Rascon MD Attn: Ziggy mathew,[address], [place], [address], [facility] - [facility] 7 12:54:16 Pain in left thumb 499264001896 9100 Completed 201610/10/2018 Jose Rascon MD Attn: Ziggy mathew,[address] [facility], [place], [address], [facility] - [facility] 8 16:44:07 Problem Notes None recorded. Procedures Surgical History Date Name Laterality Status Provider Name and Address Organization Details Recorded Time 12/28/19 20 Date of Last Mammogram completed Tiny Fermin MA [facility] 04/14/2023 14:23:52 03/08/20 19 Date of Last Pap Smear completed Tiny Fermin MA [facility] 04/14/2023 14:24:12 02/27/20 14 Most Recent Mammogram completed Deb Justice MA [facility] 03/12/2015 12:54:17 Cholecystectomy completed Placido Ness MD [address] [place], [address], [facility] - [facility] 10/11/2014 14:28:43 lumpectomy of right breast completed Juanjo Ellis MA [facility] 03/08/2019 11:22:57 cataract surgery completed Juanjo Ellis MA [facility] 03/08/2019 11:23:20 Imaging Results Imaging Date Name Status LastModified by Organiz ation Details LastModified Time 10/13/2023 MAMMO, diagnostic, digital, bilateral completed [facility] [address] [place], [address], 12/22/2023 13:10:11 10/13/2023 US, breast, bilateral completed [facility] [address], [place], [address], 12/22/2023 13:10:12 02/06/2024 CT, abdomen, w/o contrast completed [address] [facility] [address], [place], [address], 02/27/2024 19:54:57 03/15/2024 MRI, breast, bilateral, w/wo contrast completed [address], [place], [address], 04/11/2024 00:53:20 08/08/2024 US, breast, bilateral completed [address], [place], [address], 08/23/2024 01:32:10 Procedure Notes None recorded. Medical Equipment None Reported. Allergies Allergen ID Allergen Name Allergen Category Reaction Reaction Severity Criticality Documentation Date Start Date Code Code System Note Provider Name and Address Organization Details Recorded Time 24493 Wellbutri n medicatio n other severe Not available 10/11/2014 02210 RxNorm Not Available Not Available Not Available 11114 Celexa medicatio n diarrhea severe Not available 10/11/2014 28901 8 RxNorm Not Available Not Available Not Available Medications Name Sig Start Date Stop Date Status Note LastModified by Organization Details LastModified Time Prescript ion - Prior Authoriza tion Request active Not Available Not Available Not Available losartan 50 mg tablet TAKE ONE Tablet BY MOUTH ONCE DAILY (FOR BLOOD PRESSURE ) 2024 active Not Available Not Available Not Avai lable cyclobenz aprine 10 mg tablet 08/08 completed Not Available Not Available Not Available Qvar 80 mcg/actua tion Metered Aerosol oral inhaler Inhale 2 puffs twice a day by inhalati on route. 10/10 completed Not Available Not Available Not Available Colace 100 mg capsule Take 1 capsule every day by oral route. 08/08 completed Not Available Not Available Not Available acetamino phen 325 mg tablet TAKE TWO TABLETS BY MOUTH FOUR TIMES DAILY 06/04/ 2024 10/08 /2024 completed Not Available Not Available Not Available B Complex 1 tablet Take 1 tablet every day by oral route. 10/10 completed Not Available Not Available Not Available cetirizin e 10 mg tablet TAKE 1 TABLET BY MOUTH ONCE EVERY DAY (FOR ALLERGIE S) 08/08 completed Not Available Not Available Not Available Delta D3 10 mcg (400 unit) tablet Take 2 tablets every day by oral route. 10/10 completed Not Available Not Available Not Available fosfomyci n trometham ine 3 gram oral packet mix ONE PACKET DIRECTED AND drink ONCE every THREE DAYS FOR THREE doses active Not Available Not Available No t Available ibuprofen 800 mg tablet TAKE ONE TABLET BY MOUTH THREE TIMES DAILY (IN THE MORNING, MID-DAY & AT BEDTIME) WITH FOOD NEEDED 2024 active Not Available Not Available Not Avai lable nicotine (polacril ex) 2 mg gum CHEW 1 PIECE(S) OF GUM EVERY 2 HOURS BY ORAL ROUTE. 08/08 completed Not Available Not Available Not Available ofloxacin 0.3 % eye drops 06/30 completed Not Available Not Available Not Available tizanidin e 4 mg tablet TAKE ONE TABLET BY MOUTH EVERY 8 HOURS (IN THE MORNING, MID-DAY & AT BEDTIME) NEEDED FOR MUSCLE SPASM active Not Available Not Available No t Available fluconazo le 150 mg tablet 10/10 completed Not Available Not Available Not Available sulfameth oxazole 400 mg-trimet hoprim 80 mg tablet TAKE ONE TABLET BY MOUTH TWICE DAILY 03/24 completed Not Available Not Available Not Available tolterodi ne ER 4 mg capsule,e xtended release 24 hr 08/08 completed Not Available Not Available Not Available hydrocodo ne 5 mg-acetam inophen 325 mg tablet 08/08 completed Not Available Not Available Not Available fluconazo le 200 mg tablet Take 1 tablet by oral route. 08/08 completed Not Available Not Available Not Available meloxicam 15 mg tablet 06/30 completed Not Available Not Available Not Available metronida zole 0.75 % (37.5 mg/5 gram) vaginal gel Insert 1 applicat orful every day by vaginal route at bedtime for 5 days. 08/08 completed Not Available Not Available Not Available famotidin e 40 mg tablet Take 1 tablet every day by oral route at bedtime. 2024 active Not Available Not Available Not Avai lable terconazo le 0.8 % vaginal cream INSERT 1 APPLICAT OR(S)FUL EVERY DAY BY VAGINAL ROUTE AT BEDTIME FOR 3 DAYS. 08/08 completed Not Available Not Available Not Available metronida zole 500 mg tablet Take 1 tablet every 8 hours by oral route for 7 days. 10/10 completed Not Available Not Available Not Available acetamino phen 300 mg-codein e 30 mg tablet TAKE ONE TABLET BY MOUTH THREE TIMES DAILY 08/01 completed Not Available Not Available Not Available ciproflox acin 250 mg tablet 03/24 completed Not Available Not Available Not Available ciproflox acin 500 mg tablet TAKE ONE TABLET BY MOUTH TWICE DAILY FOR INFECTIO N 08/01 completed Not Available Not Available Not Available sulfameth oxazole 800 mg-trimet hoprim 160 mg tablet TAKE ONE TABLET BY MOUTH TWICE DAILY (IN THE MORNING AND EVENING) active Not Available Not Available No t Available tramadol 50 mg tablet 08/08 completed Not Available Not Available Not Available amantadin e HCl 100 mg capsule TAKE ONE Capsule BY MOUTH ONCE DAILY active Not Available Not Available No t Available bethanech ol chloride 25 mg tablet take 1 tablet po bid 10/10 completed Not Available Not Available Not Available meloxicam 7.5 mg tablet 12/13 completed Not Available Not Available Not Available oxycodone -acetamin ophen 5 mg-325 mg tablet 10/10 completed Not Available Not Available Not Available calcium 600 mg (as calcium carbonate 1,500 mg) tablet Take 1 tablet twice a day by oral route. 2022 active Not Available Not Available Not Avai lable prednisol one acetate 1 % eye drops,tre pension 06/30 completed Not Available Not Available Not Available triamcino lone acetonide 0.1 % dental paste 10/10 completed Not Available Not Available Not Available tamsulosi n 0.4 mg capsule TAKE ONE CAPSULE BY MOUTH ONCE EVERY DAY afte A MEAL active Not Available Not Available No t Available trazodone 100 mg tablet 10/10 completed Not Available Not Available Not Available baclofen 10 mg tablet TAKE ONE TABLET BY MOUTH THREE TIMES A DAY NEEDED 09/06 /2022 completed Not Available Not Available Not Available hydrocodo ne 7.5 mg-acetam inophen 325 mg tablet 10/10 completed Not Available Not Available Not Available cephalexi n 500 mg capsule TAKE ONE Capsule BY MOUTH FOUR TIMES DAILY FOR 7 DAYS 08/01 completed Not Available Not Available Not Available pantopraz ole 40 mg tablet,de layed release TAKE ONE TABLET BY MOUTH ONCE EVERY DAY BEFORE MEALS active Not Available Not Available No t Available diclofena c 0.1 % eye drops 10/10 completed Not Available Not Available Not Available nitrofura ntoin macrocrys chino 100 mg capsule Take 1 capsule 4 times a day by oral route for 5 days. 03/24 completed Not Available Not Available Not Available diphenhyd ramine 25 mg tablet Take 1 tablet every day by oral route at bedtime. 08/08 completed Not Available Not Available Not Available losartan 25 mg tablet TAKE ONE Tablet BY MOUTH ONCE DAILY FOR BLOOD PRESSURE 08/01 completed Not Available Not Available Not Available gabapenti n 300 mg capsule 06/30 completed Not Available Not Available Not Available Banophen 25 mg capsule TAKE ONE Capsule BY MOUTH ONCE EVERY NIGHT AT BEDTIME 2024 active Not Available Not Available Not Avai lable pseudoeph edrine 30 mg tablet 10/10 completed Not Available Not Available Not Available methylpre dnisolone 4 mg tablets in a dose pack 08/08 completed Not Available Not Available Not Available albuterol sulfate HFA 90 mcg/actua tion aerosol inhaler INHALE TWO PUFFS FOUR TIMES DAILY 08/12 completed Not Available Not Available Not Available Vitamin D2 1,250 mcg (50,000 unit) capsule 08/08 completed Not Available Not Available Not Available ketoconaz ole 2 % topical cream APPLY TO THE AFFECTED AREA(S) BY TOPICAL ROUTE ONCE DAILY 08/08 completed Not Available Not Available Not Available oxybutyni n chloride 5 mg tablet 08/01 completed Not Available Not Available Not Available fluticaso ne propionat e 50 mcg/actua tion nasal spray,tre pension Walker 2 sprays every day by intranas al route as directed for 30 days. 10/10 completed Not Available Not Available Not Available clotrimaz ole 1 % topical cream APPLY TO THE AFFECTED AND SURROUND ING AREAS OF SKIN BY TOPICAL ROUTE 2 TIMES PER DAY IN THE MORNING AND EVENING for 4 weeks 08/08 completed Not Available Not Available Not Available loratadin e 10 mg tablet TAKE ONE TABLET BY MOUTH ONCE EVERY DAY 2024 active Not Available Not Available Not Avai lable doxazosin 2 mg tablet TAKE ONE TABLET BY MOUTH DAILY IN THE MORNING (FOR BLOOD PRESSURE ) active Not Available Not Available No t Available amoxicill in 875 mg-potass ium clavulana te 125 mg tablet Take 1 tablet every 12 hours by oral route as directed for 7 days. 10/10 completed Not Available Not Available Not Available oxycodone 5 mg tablet 10/10 completed Not Available Not Available Not Available Rebif (with albumin) 22 mcg/0.5 mL subcutane ous syringe INJECT 1 SYRINGE SUBCUTAN EOUSLY ON WEDNESDAY, AND WEDNESDAY active Not Available Not Available No t Available nitrofura ntoin monohydra te/macroc rystals 100 mg capsule TAKE ONE Capsule BY MOUTH TWICE DAILY FOR 14 DAYS 08/01 completed Not Available Not Available Not Available solifenac in 10 mg tablet TAKE ONE TABLET BY MOUTH DAILY IN THE MORNING (FOR BLADDER CONTROL) active Not Available Not Available No t Available Symbicort 160 mcg-4.5 mcg/actua tion HFA aerosol inhaler Inhale 2 puffs twice a day by inhalati on route as directed for 30 days. 10/10 completed Not Available Not Available Not Available oxycodone 10 mg tablet TAKE ONE Tablet BY MOUTH EVERY FOUR HOURS NEEDED 10/12 completed Not Available Not Available Not Available Clinpro 5000 1.1 % dental paste Apply every 4-6 hrs 10/10 completed Not Available Not Available Not Available Gavilax 17 gram/dose oral powder active Not Available Not Available Not Available Xarelto 10 mg tablet TAKE ONE TABLET BY MOUTH DAILY 08/01 completed Not Available Not Available Not Available acetamino phen 325 mg capsule Take 2 capsules 4 times a day by oral route. 12/02 completed Duplicat e Not Available Not Available Not Available Compact Space Chamber USE WITH INHALER FOR BETTER RESULTS 2022 active Not Available Not Available Not Avai lable Vitals Date Recorded Body height Body mass index (BMI) Body weight Heart rate Body temperature Oxygen saturation Oxygen saturation in Arterial blood by Pulse oximetry Systolic blood pressure Diastolic blood pressure Provider Name and Address Organization Details Last Updated DateTime 3 182.88 cm 22.1 kg/m2 38482.5 6 g 93 /min 98.1 [degF] 98 % 98 % 144 mm[Hg] 86 mm[Hg] Claudine Ness MA [facility] 3 14:42:37 Date Recorded Body height Body mass index (BMI) Body weight Heart rate Body temperature Oxygen saturation Oxygen saturation in Arterial blood by Pulse oximetry Systolic blood pressure Diastolic blood pressure Provider Name and Address Organization Details Last Updated DateTime 3 182.88 cm 22.6 kg/m2 18305.9 3 g 87 /min 98 [degF] 98 % 98 % 130 mm[Hg] 80 mm[Hg] Claudine Ness MA [facility] 3 14:42:55 Date Recorded Body height Provider Name an d Address Organization Details Last Updated DateTime 10/12/2023 182.88 cm Claudine Ness MA [facility] 3 15:05:08 Date Recorded Body mass index (BMI) Body weight Oxygen saturation Oxygen saturation in Arterial blood by Pulse oximetry Heart rate Systolic blood pressure Diastolic blood pressure Systolic blood pressure Diastolic blood pressure Provider Name and Address Organization Details Last Updated DateTime 3 22.2 kg/m2 20778.1 5 g 100 % 100 % 98 /min 156 mm[Hg] 82 mm[Hg] 143 mm[Hg] 87 mm[Hg] Mitzi White MA [facility] 3 15:15:30 Date Recorded Body height Body mass index (BMI) Body weight Heart rate Oxygen saturation Oxygen saturation in Arterial blood by Pulse oximetry Systolic blood pressure Diastolic blood pressure Provider Name and Address Organization Details Last Updated DateTime 4 182.88 cm 20.6 kg/m2 12248.0 4 g 102 /min 98 % 98 % 97 mm[Hg] 69 mm[Hg] Mary Raphael MA [facility] 4 16:35:52 Date Recorded Body height Body mass index (BMI) Body weight Heart rate Oxygen saturation Oxygen saturation in Arterial blood by Pulse oximetry Systolic blood pressure Diastolic blood pressure Provider Name and Address Organization Details Last Updated DateTime 4 182.88 cm 22.5 kg/m2 49304.3 3 g 91 /min 99 % 99 % 150 mm[Hg] 78 mm[Hg] Mary Raphael MA [place] - [facility] 4 15:54:08 Social History Question Answer Notes LastModified by Organizat ion Details LastModified Time Tobacco Smoking Status Current Every Day Smoker [facility] [place] - [facility] 01/18/2015 15:56:28 Do You Have An Advance Directive? Yes Information not available 01/18/2015 What Is Your Level Of Alcohol Consumption? Occasional Information not available 01/18/2015 Is Blood Transfusion Acceptable In An Emergency? Yes Information not available 03/08/2019 What Is Your Level Of Caffeine Consumption? Moderate Information not available 01/18/2015 How Much Tobacco Do You Chew? None Information not available 11/20/2014 Are You Currently Employed? No Information not available 01/18/2015 What Type Of Diet Are You Following? REGULAR Information not available 01/18/2015 Which Illicit Or Recreational Drugs Have You Used? Denies Information not available 03/08/2019 Education 12 Information no t available 01/18/2015 What Is Your Occupation? None Information not available 03/08/2019 Are There Any Guns Present In Your Home? No Information not available 01/18/2015 Hard Of Hearing Or Deaf In One Or Both Ears? No Information not available 01/18/2015 Legally Blind In One Or Both Eyes? No Information no t available 01/18/2015 Live Alone Or With Others? With Others Information not available 01/18/2015 What Was The Date Of Your Most Recent Tobacco Screening? 10/03/2024 Information not available 10/03/2024 How Many Children Do You Have? 3 Information not available 01/18/2015 Performs Monthly Self-breast Exam? Yes Information no t available 01/18/2015 Do You Use Protection During Sex? No Information not available 03/08/2019 What Is Your [facility] Status? [facility] Information not available 03/08/2019 Seat Belts Used Routinely No Information not available 01/18/2015 Are You Sexually Active? Yes Information not available 01/18/2015 Smoke Alarm In Home Yes Information not available 01/18/2015 At What Age Did You Start Smoking Tobacco? 18 Information not available 01/18/2015 Are You Passively Exposed To Smoke? No Information no t available 01/18/2015 How Much Tobacco Do You Smoke? 1 PPD Information not available 01/18/2015 General Stress Level Medium Information not available 01/18/2015 Do You Use Sunscreen Routinely? Yes Information not available 01/18/2015 Has Tobacco Cessation Counseling Been Provided? Yes Information not available 03/24/2023 On What Date Was Tobacco Cessation Counseling Provided? 10/03/2024 Information not available 10/03/2024 How Many Years Have You Smoked Tobacco? 40 [email or web address] Information not available 11/20/2014 Do You Or Have You Ever Used Any Other Forms Of Tobacco Or Nicotine? No Information not available 03/24/2023 Sex: Unknown Functional Status Question Answer Note LastModified by Organizat ion Details LastModified Time Are you able to care for yourself? Yes Information not available 01/18/2015 What is your exercise level? Occasional Information not available 01/18/2015 Mental Status None recorded. Family History Relationship Description Onset Age of this Age Resolved Age Notes LastModified by Organization Details LastModified Time Mother Malignant neoplastic disease 43 [email or web address] Not available 12/12 13:18:04 Father Heart disease 78 [email or web address] Not available 12/12 13:18:04 Medical History Condition Response Coronary Artery Disease N Other N Gout N Kidney Stones N Hyperthyroidism N Depression Y COPD Y Hypothyroidism N Anemia N Headaches/Migraines N Deep Vein Thrombosis N Diabetes N Anxiety Disorder N Autoimmune disease N Bleeding Disorder N Arthritis N Seizures/Epilepsy N Tuberculosis N Hyperlipidemia Y Cancer N Stroke N Diverticulitis N Asthma N Allergies Y Reflux/GERD N GERD/Reflux Y High Cholesterol N Hepatitis N Liver Disease N Heart Disease N Bronchitis N Pulmonary Embolism N Hypertension Y Kidney Disease N Gynecological History Statement/Question Response Abnormal Pap Y Date of Last Mammogram 12/28/2019 On BCP's at Conception? N STIs/STDs N HPV Vaccine N Duration of Flow (days) Most Recent Mammogram 02/26/2014 Age at Menarche 15 Current Control Method None Age at First Child 30 If Post Menopausal, Age at Menopause 53 Sexually Active? Y Menses Monthly N Date of Last Pap Smear 03/08/2019 Sexual Problems? N LMP Definite Desired Control Method None Obstetrics History GPAL:G 4 P 3 0 1 3 Type Value Full Term 3 Spontaneous 1 Living 3 Total 4 Immunizations Vaccine Type Date Status Note Provider Nam e and Address Organization Details Recorded Time Influenza, split virus, quadrivalent, preservative 9 completed Not Available [facility] 11/11/2019 02:51:07 Pneumococcal conjugate PCV20, polysaccharide [id number] conjugate, adjuvant, PF 4 completed HUMBERTO Escobar [facility] 10/04/2024 11:17:11 Influenza, split virus, trivalent, preservative 4 completed HUMBERTO Escobar [facility] 10/04/2024 11:17:11 Past Encounters Encounter ID Performer Location Encounter Start Date Encounter Closed Date Diagnosis/Indication Diagnosis SNOMED-CT Code Diagnosis ICD10 Code Diagnosis Note [id number] Yecenia Mckeon MA [facility] [address] [place] [address] 10/11/2014 13:24:24 10/12/2014 17:21:31 Mammographic mass of breast 543142881 Will schedule for stereotact ic biopsy of the breast. The patient will see me back when the biopsy in complete. [id number] Lulu Walker [facility] [address] [place] [address] 10/29/2014 10:13:39 10/29/2014 11:30:37 Retention of urine [id number] Yecenia Mckeon MA [facility] [address] [place] [address] 11/14/2014 13:41:04 11/22/2014 10:01:32 [id number] Cesia Art [facility] [address] [place] [address] 11/20/2014 13:27:53 11/20/2014 15:22:26 Duct papilloma of breast 182313774 In benign papilloma complete excision should be considered . I discussed the small chance that there could be a malignant component of the papilloma present that was not in the sample. I offered the patient needle localized biopsy of the area versus close radiologic follow-up. She wishes to think about it further and will return if she decides that she wants excision. Should she choose to observe this area I have asked that she see me annually after her mammogram. She agrees. 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 results received and are BENIGN on repeat due in [address] 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 f\u from abnormal found 2013. [id number] Tania Gunn [facility] (Adult/Fa m Med) [address] [place] [address] 11/18/2015 15:25:32 11/18/2015 17:53:48 Multiple sclerosis 10440622 G35 Bronchitis 40401376 J40 [id number] Placido Ness MD [facility] [address] [place] [address] 11/19/2015 12:54:21 11/19/2015 15:23:38 Duct papilloma of breast 200358660 D24.9 Mammogram normal. Her nipple discharge is gone since her biopsy last year, and she has no sign of recurrence of her papilloma. Continue annual mammograms . Epidermoid cyst of skin 075721295 L72.3 [id number] Placido Ness MD [facility] [address] [place] [address] 2 12/12/2015 13:12:39 12/12/2015 16:02:41 Epidermoid cyst of skin 378791891 L72.3 [id number] MD Jessica Faith (Adult Med) [address] [place] [address] 09/09/2016 13:11:32 09/09/2016 15:55:50 Low back pain 587620041 M54.5 Multiple sclerosis 05957 007 G35 Varicose v eins of lower extremity 92899751 I83.891 Tobacco user 293151800 Z 72.0 Allergic rhinitis 781858 04 J30.9 [id number] MD Jessica Faith (Adult Med) [address] [place] [address] 0 09/22/2016 13:45:49 09/22/2016 18:33:30 Liver enzymes outside reference range 352174893 R94.5 Mixed hyperlipidemia 267 781800 E78.2 Decrease dietary fat Multiple sclerosis 34325 007 G35 [id number] [facility] (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 [address] [place] [address] 02/11/2017 16:02:44 02/17/2017 16:29:27 Atypical hyperplasia of breast 331298628 N62 PT HAS ATYPICAL LESION OF RIGHT BREAST AFTER CORE NEEDLE BIOPSY. RECOMMEND COMPLETE EXISION OF LESION TO EVALUATE FOR ANY DCIS IN LESION. WILL NEED MAMMOGRAM GUIDED WIRE LOCALIZED EXCISIONAL LUMPECTOMY AT [facility] UNDER LOCAL AND IV SEDATION. [id number] [facility] [address] [place] [address] 04/01/2017 15:11:35 04/07/2017 09:25:01 Usual ductal hyperplasia of breast 049760405 N64.89 PT IS 2 WEEKS S/P LUMPECTOMY OF RIGHT BREAST NOW CONFIRMING THAT THE INITAL CORE NEEDLE BX SHOWED ATYPICAL DUCTAL HYPERPLASI A AND THE REMAINING PART OF LESION AFTER LUMPECTOMY SHOWED ONLY USUAL DUCTAL HYPERPLASI A WITHOUT ANY DCIS OR INVASIVE CA. PT HAS DEVELOPED A POST OP NON INFECTED WOUND HEMATOMA. WILL CONTINUE TO OBSERVE HEMATOMA FOR NOW. WOULD ONLY DRAIN IT IF IT BECOMES INFECTED. FOLLOW UP OFFICE IN 1 MONTH. [id number] MD Jessica Faith (Adult Med) [address] [place] [address] 04/29/2017 11:33:33 04/29/2017 13:07:20 Mixed hyperlipidemia 717765819 E78.2 Decrease dietary fat Steatosis of liver 74493 1007 K76.0 hx moderate alcohol use Multiple sclerosis 22199 007 G35 Usual duct al hyperplasia of breast 378526371 N64.89 By Biopsy 03/18/2017 Varicose v eins of lower extremity 51708721 I83.891 Allergic rhinitis 503086 04 J30.9 Pain in left thumb 44850 52717 505595 M79.561 [id number] Mahamed [facility] [address] [place] [address] 05/06/2017 14:19:09 05/13/2017 17:09:07 Postoperative hematoma of breast 624253093 T81.89XD RIGHT BREAST HEMATOMA MUCH SMALLER NOW AND NOT INFECTED. CONTINUE TO ALLOW IT TO LIQUIFY AND REABSORB. AVOID FURTHER TRAUMA TO RIGHT BREAST. FOLLOW UP OFFICE IN 1 MONTH. [id number] Mahamed [facility] [address] [place] [address] 06/10/2017 13:53:31 06/17/2017 14:36:27 Usual ductal hyperplasia of breast 601182415 N64.89 PT IS 12 WEEKS S/P LUMPECTOMY OF RIGHT BREAST NOW CONFIRMING THAT THE INITAL CORE NEEDLE BX SHOWED ATYPICAL DUCTAL HYPERPLASI A AND THE REMAINING PART OF LESION AFTER LUMPECTOMY SHOWED ONLY USUAL DUCTAL HYPERPLASI A WITHOUT ANY DCIS OR INVASIVE CA.3CM X 3CM AREA LOCATED UPPER CENTRAL R BREAST AT 12:00 WITH CHRONIC SCARRING AND ALMOST RESOLVED HEMATOMA [id number] Jose Rascon MD [facility] (Adult Med) [address] [place] [address] 09/28/2017 13:57:27 09/28/2017 15:35:37 Bacterial vaginosis 744065901 N76.0 Toothache 65566407 K08.8 9 [id number] [facility] (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) [address] [place] [address] 11/09/2017 14:41:53 11/12/2017 11:18:53 Gynecologic examination 03581901 Z01.419 Screening mammography 24 151573 Z12.31 Vaginitis 15633936 N76.0 [id number] MD Jessica Faith (Adult Med) [address] [place] [address] 12/27/2017 15:07:14 12/27/2017 16:26:42 Mixed hyperlipidemia 928729843 E78.2 Decrease dietary fat Tobacco user 848431783 Z 72.0 Low back pain 277750915 M54.5 Steatosis of liver 1007 K76.0 hx moderate alcohol use Hyperglycemia 87815825 R 73.9 Multiple sclerosis 29904 007 G35 [id number] MD Jessica Faith (Adult Med) [address] [place] [address] 0 04/11/2018 14:39:47 04/12/2018 10:53:57 Hyperglycemia 95498881 R73.9 Mixed hyperlipidemia 267 003294 E78.2 Decrease dietary fat Multiple sclerosis 27864 007 G35 Continue interferon injections [id number] MD Jessica Faith (Adult Med) [address] [place] [address] 0 10/10/2018 15:12:38 10/10/2018 17:06:31 Hyperglycemia 96256066 R73.9 Allergic rhinitis 570346 04 J30.9 Multiple sclerosis 54728 007 G35 Continue interferon injections Tinea pedis 7226082 B35. 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) [address] [place] [address] 0 03/08/2019 10:41:24 03/08/2019 16:24:41 Gynecologic examination 92532599 Z01.419 Exposure t o sexually transmissible disorder 712839377 Z20.2 Screening mammography 24 413655 Z12.31 Breast lump 15916594 N63 .0 Discharge from nipple 54 014254 N64.52 [id number] Jose Rascon MD [facility] (Adult Med) [address] [place] [address] 03/15/2019 12:17:34 03/15/2019 14:11:40 Discharge from breast 958535848 N64.52 Allergic rhinitis 080539 04 J30.9 Change to loratidine with prn diphenhydr amine [id number] MD Jessica Faith (Adult Med) [address] [place] [address] 0 07/19/2019 14:50:15 07/20/2019 09:47:03 Constipation 82756591 K59.00 Osteoarthritis 825787400 M19.90 [id number] MD Jessica Faith (Adult Med) [address] [place] [address] 0 12/12/2019 15:48:25 12/13/2019 12:14:28 Discharge from breast 203033217 N64.52 Allergic rhinitis 104528 04 J30.9 Change to loratidine with prn diphenhydr amine Hyperglycemia 59848394 R 73.9 Low back pain 064366462 M54.5 Mixed hyperlipidemia 267 088556 E78.2 Decrease dietary fat Multiple sclerosis 27266 007 G35 Continue interferon injections Steatosis of liver 71866 1007 K76.0 hx moderate alcohol use Tobacco user 559534721 Z 72.0 Varicose v eins of lower extremity 07503881 I83.891 Chronic pain syndrome 37 0340077 G89.4 [id number] MD Jessica Faith (Adult Med) [address] [place] [address] 0 08/08/2020 09:06:10 08/09/2020 11:55:25 Renewal of prescription 570525057 Z76.0 Allergic rhinitis 344345 04 J30.9 Change to loratidine with prn diphenhydr amine Tobacco user 261304506 Z 72.0 Low back pain 239645668 M54.5 [id number] MD Jessica Faith (Adult Med) [address] [place] [address] 0 06/30/2022 16:09:49 07/01/2022 11:13:10 Hyperglycemia 00891873 R73.9 Osteoarthritis 419592423 M19.90 Steatosis of liver 92020 1007 K76.0 hx moderate alcohol use Tobacco user 712286046 Z 72.0 Multiple sclerosis 97078 007 G35 Continue interferon injections as per neurologis t Mixed hyperlipidemia 267 818394 E78.2 Decrease dietary fat Low back pain 522910901 M54.50 Chronic pain syndrome 37 4689411 G89.4 Allergic rhinitis 497935 04 J30.9 Change to loratidine with prn diphenhydr amine Retention of urine 51819 4002 R33.9 Urinary tr act infectious disease 54862305 N39.0 [id number] MD Jessica Faith (Adult Med) [address] [place] [address] 0 03/24/2023 15:27:38 03/26/2023 09:23:34 Multiple sclerosis 98437065 G35 Continue Ocrevus injections as per neurologis t Tobacco user 124996414 Z 72.0 Mixed hyperlipidemia 267 285028 E78.2 Decrease dietary fat Hyperglycemia 63408544 R 73.9 Screening for osteoporosis 469453683 Z13.820 Elevated blood-pressure reading without diagnosis of hypertension 377045330 R03.0 Recheck BP in 1 mth Lesion of skin of face 2126884577 06 L98.9 [id number] MD Jessica Stewart (Adult Med) [address] [place] [address] 0 04/14/2023 14:19:06 04/19/2023 11:35:38 Bilateral discharge from nipples 5787885278 9985344 N64.52 History of left ductal papilloma with biopsy. Check TSH and prolactin. Get mammogram. Follow up in three to four weeks. Stressed the importance of follow up. Screening for malignant neoplasm of cervix 870175880 Z12.4 Due for repeat PAP in one year. Elevated blood-pressure reading without diagnosis of hypertension 690349910 R03.0 Being addressed by PCP Dr. Rascon. Seeing him next week. Nicotine dependence 5629 4008 F17.200 Discussed quitting. Patient not ready to do that at this time. [id number] HUMBERTO Aquino (Adult Med) [address] [place] [address] 0 04/21/2023 12:17:42 04/26/2023 14:42:58 Underweight 365113058 R63.6 Osteopenia 471137796 M85 .80 Cont Vit D. Start Ca supplement Essential hypertension 19907404 I10 Add losartan 25 mg [id number] MD Jessica Faith (Adult Med) [address] [place] [address] 0 06/15/2023 14:30:42 06/18/2023 12:12:20 Urinary tract infectious disease 89172821 N39.0 [id number] MD Jessica Faith (Adult Med) [address] [place] [address] 81162[address] 0 08/12/2023 13:48:01 08/18/2023 15:18:08 At increased risk of deep vein thrombosis 592544862 Z91.89 S/P R hemiarthro plasty 07/29 Chronic pain syndrome 37 6407367 G89.4 Essential hypertension 52473237 I10 Hyperglycemia 69419040 R 73.9 Low back pain 745750575 M54.50 Multiple sclerosis 88659 007 G35 Continue Ocrevus injections as per neurologis t Osteopenia 364374175 M85 .80 Cont Vit D. Start Ca supplement Retention of urine 33158 4002 R33.9 Tobacco user 054562086 Z 72.0 Fracture o f neck of femur 7079115 S72.001A Pain relief for recent hip fracture. Pt to f/u ortho in one week [id number] MD Jessica Faith (Adult Med) [address] [place] [address] 0 10/12/2023 15:02:25 10/13/2023 15:56:23 Chronic pain syndrome 469305412 G89.4 Essential hypertension 09056309 I10 Still high . Increase losartan to 50 mg/d Hyperglycemia 27525330 R 73.9 Mixed hyperlipidemia 267 127799 E78.2 Decrease dietary fat Multiple sclerosis 85271 007 G35 Continue Ocrevus injections as per neurologis t Steatosis of liver 90273 1007 K76.0 hx moderate alcohol use Ulcer of left ankle 1066 574939 9839841 L97.329 Advised elevation proximal left leg for sleeping Fracture o f neck of femur 0345036 S72.001A PT as ordered by ortho [id number] MD Jessica Faith (Adult Med) [address] [place] [address] 08/01/2024 15:46:23 08/15/2024 15:50:47 Essential hypertension 40983544 I10 Gastroesop hageal reflux disease 442877780 K21.9 Hyperglycemia 68898259 R 73.9 Multiple sclerosis 34177 007 G35 Continue Ocrevus injections as per neurologis t Tobacco user 150664682 Z 72.0 Abnormal weight loss 267 215298 R63.4 Loss of hair 476773324 L 65.9 [id number] HUMBERTO Escobar (Adult Med) [address] [place] [address] 10/03/2024 15:25:32 10/05/2024 15:09:10 Multiple sclerosis 68673397 G35 Continue Ocrevus injections as per neurologis t Retention of urine 41185 4002 R33.9 F/U urology Tobacco user 290252732 Z 72.0 At [facility] risk of deep vein thrombosis 245659029 Z91.89 S/P R hemiarthro plasty 07/29 Chronic pain syndrome 37 1789094 G89.4 Active immunization 3387 9002 Z23 Health Concerns Section Related Observation LastModified by Organization Detai ls LastModified Time None Recorded Concern Status LastModified by Organization Details LastModified Time None Recorded Advance Directives Directive Y: Payers Encounter Date Sequence Insurance Name Policy Number Policy Medeiros Covered Member ID Medeiros Member ID Guarantor Name 06/15/2023 1 [facility] ON OR AFTER 04/24/21 (MEDICAID REPLACEMENT - HMO) Jacqui Kaba [id number] Jacqui Kaba 08/12/2023 1 [facility] ON OR AFTER 04/24/21 (MEDICAID REPLACEMENT - HMO) Jacqui Kaba [id number] Jacqui Kaba 10/12/2023 1 [facility] ON OR AFTER 21 (MEDICAID REPLACEMENT - HMO) Jacqui Kaba [id number] Jacqui Kaba 08/01/2024 1 [facility] ON OR AFTER 04/24/21 (MEDICAID REPLACEMENT - HMO) Jacqui Kaba [id number] Jacqui Kaba 10/03/2024 1 [facility] - DOS ON OR AFTER 21 (MEDICAID REPLACEMENT - HMO) Jacqui Kaba [id number] Jacqui Kaba Notes Date Note Type Note Provider Name and Address Organization Details Recorded Time 06/15/2023 text/html Urinary frequenc y in the past week. Grew e.coli about five months ago. Jose Rascon MD Attn: Accounting,[address] [facility], [place], [address], [facility] 06/15/2023 15:37:56 08/12/2023 text/html F/U hospitalizat ion for right femoral neck fracture. Had naveen arthroplasty. is currently on TIW home PT and Xarelto. Jose Rascon MD Attn: Accounting, [address] [facility], [place], [address], [facility] 08/12/2023 15:39:46 10/12/2023 text/html S/P hip surgery. Is awaiting PT appointment. Still having trouble sleeping on right side. This has caused slowing of left ankle skin ulcer. Jose Rascon MD Attn: Accounting, [address] [facility], [place], [address], [facility] 10/12/2023 16:09:32 08/01/2024 text/html Here for routine f/u. She is concerned about her weight loss. She has no appetite. She has lost a lot of hair. Jose Rascon MD Attn: Accounting, [address] [facility], [place], [address], [facility] 08/01/2024 16:50:27 10/03/2024 text/html Here for lab f/u . She is requesting a letter to justify using her dog as an emotional support animal. she wants a flu and pneumococcal vaccines. Scheduled to see urologist tomorrow HUMBERTO Escobar, [place] [facility] 10/04/2024 11:17:28 OBGyn Episode No OBEpisode recorded.
== END 2025-01-31 12:40 | disposition home or self-care (01) ==
LOC: ANHIMG 12:41
PROVIDERS: PCP Internal Medicine Gastroenterology; Visit Provider Surgery
DX: Z12.39 Encounter for other screening for malignant neoplasm of breast (principal); N64.52 Nipple discharge; N63.25 Unspecified lump in the left breast, overlapping quadrants
CPT/HCPCS: 76642; 77062; 77066; G0279